=== PATIENT | male | born 1970 | race Hispanic/Latino ===

== ENCOUNTER 2024-06-27 06:02 | Day surgery (SDC) | payer MEDICAID ==
[~2024-06-27] VITALS: Ht 180.3 cm; Wt 100.2 kg
[2024-06-27] VITALS (12 sets, daily range): BP systolic 103–131; BP diastolic 7–89; PULSE 77–98; RESP 14–18; TEMP 97.1–97.5
[2024-06-27] MEDS ORDERED: METO-391 PO (07:19)
[2024-06-27] MEDS ORDERED: SACU1TAB PO (07:19)
[2024-06-27] MEDS ORDERED: APIX5TAB PO (07:19)
[2024-06-27] MEDS ORDERED: FURO20TA4 PO (07:19)
[2024-06-27] MEDS ORDERED: FERS325 PO (07:19)
[2024-06-27] MEDS ORDERED: TAMS-1 PO (07:19)
[2024-06-27] MEDS ORDERED: LEVE10006 PO (07:19)
[2024-06-27] MEDS ORDERED: LORA10TA7 PO (07:19)
[2024-06-27] MEDS ORDERED: GABA-529 PO (07:19)
[2024-06-27] MEDS ORDERED: VERA120T20 PO (07:19)
[2024-06-27] MEDS ORDERED: ATOR10 PO (07:19)
[2024-06-27] MEDS: 0.9%NACL 1000ML 1,000 ML IV ONE (07:32)
[2024-06-27] MEDS ORDERED: proPOFol 10 MG/ML 20ML VIAL IV ONE ×2 (08:09→08:50)
--- NOTE | 2024-06-27 10:16 | EKG ---
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
--- NOTE | 2024-06-27 11:00 | NUR ---
Full and complete discharge instructions given to Patient and Family both verbally and in writing. Explained GI procedure precautions and follow up. All questions answered. PIV removed with catheter tip intact. Home with Family W/C to POV.
== END 2024-06-27 11:00 | disposition home or self-care (01) ==
LOC: DAH 06:02 → SUH 06:02
PROVIDERS: ATTEND Internal Medicine Gastroenterology
DX: R93.3 Abnormal findings on diagnostic imaging of other parts of digestive tract (principal); K31.89 Other diseases of stomach and duodenum; K64.9 Unspecified hemorrhoids; C49.A2 Gastrointestinal stromal tumor of stomach; E66.9 Obesity, unspecified; Q85.00 Neurofibromatosis, unspecified; I48.91 Unspecified atrial fibrillation; I42.9 Cardiomyopathy, unspecified; D50.9 Iron deficiency anemia, unspecified; E11.9 Type 2 diabetes mellitus without complications; I11.0 Hypertensive heart disease with heart failure; I50.22 Chronic systolic (congestive) heart failure; Z98.890 Other specified postprocedural states; Z68.29 Body mass index [BMI] 29.0-29.9, adult; Z79.899 Other long term (current) drug therapy; Z86.0100 Personal history of colon polyps, unspecified
CPT/HCPCS: 82948; 43238; 93005; J7030 ×2; J2704 ×2; A4620; A4215 ×2; A4223; A7002; A4222; A4221; A4663; A4606; J3490

== ENCOUNTER 2024-08-17 07:42 | Day surgery (SDC) | payer MEDICAID ==
[2024-08-15 12:28] LABS: BASOPHILS # (AUTO) 0.05 K/uL (0.00-0.20); BASOPHILS % (AUTO) 0.5 % (0.0-5.0); EOSINOPHILS # (AUTO) 0.04 K/uL (0.00-0.70); EOSINOPHILS % (AUTO) 0.4 % (0.0-8.0); HEMATOCRIT 56.9 % (42-54); IMMATURE GRANULOCYTE ABSOLUTE 0.04 K/uL (0-1); LYMPHOCYTES # (AUTO) 1.8 K/uL (1.0-4.8); LYMPHOCYTES % (AUTO) 16.7 % (21.0-51.0); MEAN CORPUSCULAR HEMOGLOBIN 29.7 pg (27.0-33.0); MEAN CORPUSCULAR HGB CONC 31.8 g/dL (32.0-36.0); MEAN CORPUSCULAR VOLUME 93.3 fL (79-99); MONOCYTES # (AUTO) 0.9 K/uL (0.1-1.0); MONOCYTES % (AUTO) 8.5 % (3.0-13.0); NEUTROPHILS # (AUTO) 7.7 K/uL (1.8-7.7); NEUTROPHILS % (AUTO) 73.5 % (40.0-77.0); PLATELET COUNT (AUTO) 306 K/uL (130-400); RED CELL DISTRIBUTION WIDTH 13.6 % (11.0-15.5); WHITE BLOOD COUNT (AUTO) 10.5 K/uL (4.8-10.8)
[2024-08-15 12:43] LABS: ALBUMIN 3.6 g/dL (3.5-5.0); BILIRUBIN,TOTAL 1.3 mg/dL (0.2-1.0); INR 1.11 (0.85-1.15); POTASSIUM 4.2 mmol/L (3.5-5.1); PROTHROMBIN TIME 11.6 SEC (9.6-11.6)
[2024-08-15 12:44] LABS: PARTIAL THROMBOPLASTIN TIME 27.3 SEC (26.3-35.5)
--- NOTE | 2024-08-15 12:46 | EKG ---
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
[2024-08-15 17:02] VITALS: BP 138/103; PULSE 67; RESP 16; TEMP 97.5
--- NOTE | 2024-08-16 10:08 | NUR ---
report dr her informed of ekg and pt noncompliant with meds especially seizure medications. pt also held eliquis 4 days instead of 3 as instructed by softball umpire. ok to proceed
--- NOTE | 2024-08-16 10:40 | NUR ---
REPORT DR MALONE ALSO NOTIFIED OF NONCOMPLIANCE WITH MEDICATIONS. MD WILL FOLLOW UP WITH PT IN AM AND REINFORCE THE IMPORTANCE OF TAKING MEDICATIONS
[2024-08-17] VITALS (12 sets, daily range): BP systolic 101–118; BP diastolic 65–85; PULSE 82–100; RESP 16–20; TEMP 97–97.9
[~2024-08-17] VITALS: Ht 180.3 cm; Wt 98.0 kg
[~2024-08-17 07:42] MED LIST: APIX5TAB PO; ATOR40TA71 PO; CARV12.511 PO; DUTA0.5C37 PO; FURO40TA5 PO; GABA-529 PO; METO-391 PO; PANT40TA54 PO; SACU1TAB PO; VERA40TA5 PO
[2024-08-17] MEDS ORDERED: 0.9%NACL 1000ML 1,000 ML IV SCH (08:00)
[2024-08-17] MEDS: 0.9%NACL 1000ML 1,000 ML IV ONE (08:47)
[2024-08-17] MEDS: ceFAZolin SODIUM 2 GM VIAL ONE (08:47)
[2024-08-17] MEDS ORDERED: TAMS-55 PO (08:56)
[2024-08-17] MEDS ORDERED: LEVE-21 PO (08:56)
[2024-08-17] MEDS ORDERED: proPOFol 10 MG/ML 20ML VIAL IV ONE (10:13)
[2024-08-17] MEDS ORDERED: FENTanyl CITRate PF 50 MCG/1 ML 2ML VIAL ONE (10:13)
[2024-08-17] MEDS ORDERED: rocuRONium bROMide 10MG/1ML 5ML VL ONE (10:13)
[2024-08-17] MEDS ORDERED: LIDOCAINE HCL MPF 1% 5ML VIAL ONE (10:14)
[2024-08-17] MEDS ORDERED: dexaMETHasone SOD PHOSPHATE 10MG/ML 1ML VIAL ONE (10:22)
[2024-08-17] MEDS ORDERED: ondanSETRON 4MG INJ ONE (10:22)
[2024-08-17] MEDS ORDERED: ePHEDrine SULFate 50 MG/ML AMPULE ONE (10:32)
[2024-08-17] MEDS: BUPIvacaine/PF 0.25% 30ML VIAL IJ ONE (10:39)
[2024-08-17] MEDS ORDERED: SUGAMMADEX SODIUM 200 MG/2 ML VIAL IV ONE (12:05)
--- NOTE | 2024-08-17 12:44 | PN ---
GENERAL SURGERY PROGRESS NOTE Date/Time Patient Seen: [ 08/17/2024 at 12:40 p.m.] Problem List: [ ] Interval History: [ Postop day 0. Pain tolerable with p.r.n. medication.] Current Medications Medications (Trade) Dose Ordered Sig/Shante Route Start Time Stop Time Status Last Admin Dose Admin Sodium Chloride 1,000 ml @ 0 mls/hr Q0M IV 08/17/24 08:00 09/16/24 07:59 Physical Examination: ABD: [Incisions clean, dry and intact, Dermabond in place Vital Signs (last 8hr) Date Time Temp Pulse Resp B/P (MAP) Pulse Ox O2 Delivery O2 Flow Rate FiO2 08/17/24 12:20 90 17 110/77 100 Nonrebreathing Mask 100 08/17/24 12:15 82 18 115/81 99 Nonrebreathing Mask 100 08/17/24 12:10 97.0 91 20 117/85 97 Nonrebreathing Mask 100 08/17/24 08:05 97.0 85 16 112/74 97 Room Air Laboratory: [ ] Diagnostics / Radiology: [Copy/Paste Echos/Imaging Report here] Impression and Plan: [Plan is for discharge home today once patient tolerating p.o., ambulatory and pain under control. Discussed with patient and family. They understand and agree. Prior to 1st postop visit patient will be scheduled for CT scan. ] CAROL MALONE Aug 17, 2024 12:44
--- NOTE | 2024-08-31 11:29 | OP ---
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 POSTOPERATIVE DIAGNOSIS: Multiple tumors somewhere between nine and 12 total tumors encountered along the length of the proximal small intestine SYNOPSIS: Diagnostic laparoscopy performed with the placement of metallic hemoclips to joseph small intestinal tumors of various sizes in preparation for definitive resection PROCEDURE: Diagnostic laparoscopy, robotic assisted with identification of at least nine and up to 12 individual tumors or clusters of tumor located in the proximal small bowel from the duodenum down to the terminal ileum ESTIMATED BLOOD LOSS: Minimal, less than 20 cc INDICATIONS: As above DESCRIPTION OF PROCEDURE: After standard precautions and preparations were undertaken a Veress needle and optical trocar were used to enter the abdominal cavity. All other instruments were placed under direct vision. The robotic system was docked in the standard fashion. We are able to identify the original tumor in question which was a very large tumor essentially located at the ligament of Treitz. There was some evidence of contained hematoma in the small intestinal wall. However we noted that there were small tumors distal to that particular mass along the proximal jejunum. We began to evaluate the entirety of small bowel down to the terminal ileum and encountered somewhere between nine and 12 small tumors of various sizes and shapes. Hemostatic metal clips were placed to joseph each of the tumors. No definitive resection was planned for today however now we will be able to reimage the patient in hopes that we can identify all clinically significant tumors prior to definitive resection attempt. At the end of the case all instrument counts were verified as correct including needles and sponges. The patient tolerated the procedure well. RAZIA MALONE MD Aug 31, 2024 11:29
== END 2024-08-17 13:30 | disposition home or self-care (01) ==
LOC: DAH 07:42
PROVIDERS: ATTEND Surgery
DX: C49.A3 Gastrointestinal stromal tumor of small intestine (principal); R93.3 Abnormal findings on diagnostic imaging of other parts of digestive tract; E11.9 Type 2 diabetes mellitus without complications; K64.9 Unspecified hemorrhoids; E66.9 Obesity, unspecified; I48.91 Unspecified atrial fibrillation; Q85.00 Neurofibromatosis, unspecified; I11.0 Hypertensive heart disease with heart failure; I50.22 Chronic systolic (congestive) heart failure; Z86.2 Personal history of diseases of the blood and blood-forming organs and certain disorders involving the immune mechanism; Z98.890 Other specified postprocedural states; Z68.29 Body mass index [BMI] 29.0-29.9, adult; Z86.0100 Personal history of colon polyps, unspecified; Z79.899 Other long term (current) drug therapy
CPT/HCPCS: 80053; 85025; 85610; 85730; 86850; 86900; 86901; 36415; 93005; 43659; 43235; 49327; A6260; A4663; J7030 ×2; A4215 ×2; J3010; J1100; J0665; J3490 ×3; J2704; J2405; J0690; A4649; A4222; A4221; A4216; A4223 ×2; A4600